=== PATIENT | female | born 1965 | race Caucasian/White ===

== ENCOUNTER 2018-10-07 10:53 | Outpatient (CLI) | payer BC | END 2018-10-07 10:54 | disposition home or self-care (01) | LOC: BICMAMMO 10:53 | PROVIDERS: ATTEND Family Medicine | DX: Z12.31 Encounter for screening mammogram for malignant neoplasm of breast (principal); Z80.3 Family history of malignant neoplasm of breast | CPT/HCPCS: 77063; 77067 ==

== ENCOUNTER 2019-09-09 09:49 | Outpatient (CLI) | payer BC ==
--- NOTE | 2019-09-09 13:30 | CT ---
CT ABDOMEN WITHOUT CONTRAST: INDICATIONS: Upper abdominal pain. TECHNIQUE: Oral contrast was administered. Multiplanar reconstructions. FINDINGS: The lung bases appear clear. Images of the liver reveal a small nonspecific low density focus along t he posterior margin of the upper liver, measuring 1.2 cm. This could represent a small cyst but canno t be adequate characterized. The liver, spleen and pancreas are otherwise unremarkable given the limi tations of an unenhanced exam. Stomach and duodenum appear unremarkable. There is a 2 cm nodule involving the left adrenal gland. Densities on this noncontrast study are chelita rded at 5 Hounsfield units, which would indicate a benign adenoma. The kidneys are unremarkable. No urinary tract calculus or hydronephrosis identified. The visualized aorta is of normal caliber. There is nonspecific periaortic adenopathy in the upper abdomen. Numerous para-aortic lymph nodes and paracaval lymph nodes are seen measuring 1 to 2 cm. There is a prominent lymph node along the medial collin of the left lobe of the liver in the upper abdomen measuring 2.7 cm craniocaudal on the coron al plane. The aorta shows atherosclerotic calcification but normal caliber. The kidneys show no evidence of hyd ronephrosis or mass, although exam is limited due to lack of IV contrast. The visualized small bowel loops are of normal caliber. Portions of the colon that are imaged appear unremarkable. There is abnormal mesenteric haziness and stranding along the anterior abdominal wall of the upper ab domen. This is nonspecific. It could represent changes from prior abdominal surgery. No evidence of free fluid. IMPRESSION: 1. Abdominal adenopathy seen in the upper abdomen and para-aortic regions, as described above. 2. Left adrenal nodule which has CT density, suggesting a benign adenoma. 3. Nonspecific mesenteric haziness and stranding along the anterior abdominal wall. This could repres ent inflammatory change however it may be chronic changes from prior abdominal surgery. POS: [facility]
== END 2019-09-09 09:50 | disposition home or self-care (01) ==
LOC: BICCT 09:49
PROVIDERS: ATTEND Family Medicine
DX: R10.84 Generalized abdominal pain (principal); R59.0 Localized enlarged lymph nodes; E27.8 Other specified disorders of adrenal gland
CPT/HCPCS: 74150

== ENCOUNTER 2019-10-22 08:20 | Outpatient (CLI) | payer BC ==
--- NOTE | 2019-10-22 09:42 | MMO ---
Bilateral MAMMO Bilat Screen [facility]. CLINICAL HISTORY: Patient is 54 years old and is seen for screening. The patient has no family history of breast cancer. The patient has a history of cervical cancer at age 28. VIEWS: The views performed were: bilateral craniocaudal with tomosynthesis and bilateral mediolateral oblique with tomosynthesis. FILMS COMPARED: The present examination has been compared to prior imaging studies performed at [facility] on 11/22/2008, 04/20/2013, 04/25/2014 and 10/07/2018. This study has been interpreted with the assistance of computer-aided detection. MAMMOGRAM FINDINGS: There are scattered fibroglandular densities. There are no suspicious masses, suspicious calcifications, or new areas of architectural distortion. IMPRESSION: THERE IS NO MAMMOGRAPHIC EVIDENCE OF MALIGNANCY. A ROUTINE FOLLOW-UP MAMMOGRAM IN 1 YEAR IS RECOMMENDED. THE RESULTS OF THIS EXAM WERE SENT TO THE PATIENT. ACR BI-RADS Category 1 - Negative MAMMOGRAPHY NOTE: 1. A negative mammogram report should not delay a biopsy if a dominant of clinically suspicious mass is present. 2. Approximately 10% to 15% of breast cancers are not detected by mammography. 3. Adenosis and dense breasts may obscure an underlying neoplasm. Reported by: BETO HANKINS MD Electonically Signed: [id number]
== END 2019-10-22 08:21 | disposition home or self-care (01) ==
LOC: BICMAMMO 08:20
PROVIDERS: ATTEND Family Medicine
DX: Z12.31 Encounter for screening mammogram for malignant neoplasm of breast (principal); Z85.41 Personal history of malignant neoplasm of cervix uteri
CPT/HCPCS: 77063; 77067

== ENCOUNTER 2019-10-25 15:51 | Emergency (ER) | payer BC ==
--- NOTE | 2019-10-25 17:28 | ULT ---
Right lower extremity venous Doppler ultrasound: 10/25/2019 COMPARISON: None HISTORY: Pain, assess for DVT TECHNIQUE: Multiplanar grayscale sonographic imaging of the venous structures of the right lower extr emity obtained with color flow and spectral analysis FINDINGS: Right common femoral vein, greater saphenous vein, profunda femoral vein, femoral vein, pop liteal vein, and posterior tibial vein are patent. Normal blood flow, augmentation, and compression within the deep venous system on the left. No evidence for deep venous thrombosis. IMPRESSION: No evidence for deep venous thrombosis of the right lower extremity.
[2019-10-25] MEDS ORDERED: Acetaminophen 325 MG TAB ONE (19:13)
== END 2019-10-25 19:24 | disposition home or self-care (01) ==
LOC: ERS 15:51
DX: M79.604 Pain in right leg (principal); E03.9 Hypothyroidism, unspecified; E11.9 Type 2 diabetes mellitus without complications; M19.90 Unspecified osteoarthritis, unspecified site; E78.5 Hyperlipidemia, unspecified; I10 Essential (primary) hypertension; F41.9 Anxiety disorder, unspecified; F17.210 Nicotine dependence, cigarettes, uncomplicated; Z79.84 Long term (current) use of oral hypoglycemic drugs; Z79.899 Other long term (current) drug therapy

== ENCOUNTER 2020-01-12 05:36 | Day surgery (SDC) | payer BC ==
[2020-01-11 13:09] VITALS: BMI 45.6
[2020-01-12] MEDS ORDERED: Bupivacaine PF 0.5% 30 ML VIAL ONE (06:44)
[2020-01-12] MEDS ORDERED: Lidocaine 1% w/Epinephrine 1:100K 20 ML VIAL ONE (06:44)
[2020-01-12] MEDS ORDERED: Propofol 500 MG/50 ML VIAL ONE (06:53)
[2020-01-12] MEDS ORDERED: Fentanyl 100 MCG/2 ML VIAL ONE (06:53)
[2020-01-12] MEDS ORDERED: Midazolam HCl 2 mg/2 ml Vial ONE (06:53)
[2020-01-12] MEDS ORDERED: Ketamine 50 MG/ML (10ML VIAL) ONE (06:53)
--- NOTE | 2020-01-12 07:41 | HP ---
HISTORY OF PRESENT ILLNESS: Henna Holguin is a 54-year-old female, followed by Dr. Awan and Dr. Sanford, has serous carcinoma, adnexa carcinomatosis, status post November 30 laparotomy, [place], Dr. Zhao, total abdominal hysterectomy, bilateral salpingo-oophorectomy, bowel resection, biopsies. With the above diagnosis, she has poor IV access and needs antineoplastic chemotherapy. Plan is to place a MediPort, IV sedation, local anesthesia. MEDICATIONS: 1. Atorvastatin. 2. Buspar. 3. Lisinopril. 4. Glimepiride. 5. Omeprazole. 6. Metformin ER. 7. Lovenox 150 mg subcu b.i.d. ALLERGIES: BAND-AIDS, PAPER TAPE. SOCIAL HISTORY: Tobacco none since November 2019, 1/2 to a pack per day prior. Alcohol rarely. PAST SURGICAL HISTORY: Laparotomy as described above, cholecystectomy in 2002, right oophorectomy, laparotomy for gynecological reasons, though she cannot recall. PAST MEDICAL HISTORY: Diabetes mellitus, GERD, carcinomatosis, serous adenocarcinoma of adnexa, postoperative laparotomy in November 2013. She experienced DVT, underwent thrombolysis prior to being discharged and is on Lovenox twice a day, therapeutic. She will hold this in the morning, resume it . REVIEW OF SYSTEMS: Noncontributory. PHYSICAL EXAMINATION: VITAL SIGNS: Weight 283 pounds, height 66 inches, 45 BMI, blood pressure 149/83, temperature degrees. HEAD, EARS, EYES, NOSE, AND THROAT: Unremarkable. LUNGS: Clear to auscultation. CARDIAC: Regular rhythm without murmur or gallop. ABDOMEN: Soft, obese, well-healed laparotomy incision. Both sites drained. EXTREMITIES: Unremarkable. ASSESSMENT: Serous carcinoma. PLAN: MediPort placement, outpatient IV sedation for chemotherapy tomorrow postoperatively. We will leave access. Job ID: [id number]
--- NOTE | 2020-01-12 08:00 | RAD ---
Exam: Chest one view HISTORY:Mediport placement Comparison: 03/17/2017 FINDINGS: Lines and tubes: Interval placement of right-sided Mediport catheter with the distal tip projecting o nick the superior vena cava. Cardiac silhouette: Normal Aorta: Unremarkable Pulmonary vessels: Normal Costophrenic angles: Clear LUNGS: Lung volumes are diminished, likely due to a poor inspiratory effort. Resultant accentuation i n the right infrahilar region Pneumothorax: None Osseous abnormalities: None IMPRESSION: 1. Right-sided Mediport catheter placement. Distal tip projects over the superior vena cava. No pneum othorax. 2. Diminished lung volumes with resultant accentuation in the right infrahilar region.
--- NOTE | 2020-01-12 11:50 | OP ---
DATE OF PROCEDURE: 01/12/2020 PREOPERATIVE DIAGNOSES: 1. Serous carcinoma with adnexal carcinomatosis. 2. Postoperative hysterectomy and debulking. 3. Need of antineoplastic chemotherapy access. 4. Obesity. POSTOPERATIVE DIAGNOSES: 1. Serous carcinoma with adnexal carcinomatosis. 2. Postoperative hysterectomy and debulking. 3. Need of antineoplastic chemotherapy access. 4. Obesity. PROCEDURE PERFORMED: Right subclavian vein MediPort, PowerPort. ANESTHESIA: TIVA, local with 0.5% Marcaine 30 mL mixed with 1% Xylocaine with epinephrine 20 mL, fluoroscopy used. DESCRIPTION OF PROCEDURE: The patient was taken to the operating room where under intravenous sedation, neck and chest prepared with ChloraPrep and draped in routine fashion. Local anesthetic mixture was infiltrated into the skin and subcutaneous tissue about the operative site. Infraclavicular approach to the subclavian vein used and J-wire threaded, trocar and catheter removed. Skin site enlarged sharply, carried down to skin and subcutaneous tissue, subcutaneous pocket created with blunt and sharp dissection. Good hemostasis noted. Dilator and Peel-Away sheath placed over the J-wire in the superior vena cava and dilator and J-wire were removed. Catheter placed with Peel-Away sheath. Peel-Away sheath removed. Tip of the catheter placed in optimal position, deep in the superior vena cava, considering her obesity. Catheter tailored to length, connected to the MediPort place, which was placed in the pocket and secured with 2 interrupted suture of 3-0 Prolene. Subcutaneous tissue was approximated with 3-0 Monocryl, skin with subdermal 4-0 Monocryl, and Hutchison glue applied. MediPort accessed with a Garcia needle, aspirating blood, flushing with heparinized saline solution, leaving the MediPort access for chemotherapy administration today. Job ID: [id number]
== END 2020-01-12 08:35 | disposition home or self-care (01) ==
LOC: SDC 05:36
PROVIDERS: ATTEND Specialist
PROC: 02HV33Z Insertion of Infusion Device into Superior Vena Cava, Percutaneous Approach (ICD-10-PCS; principal; 2020-01-12)
DX: C76.3 Malignant neoplasm of pelvis (principal); E11.9 Type 2 diabetes mellitus without complications; K21.9 Gastro-esophageal reflux disease without esophagitis; E78.00 Pure hypercholesterolemia, unspecified; E66.9 Obesity, unspecified; Z68.42 Body mass index [BMI] 45.0-49.9, adult; Z79.82 Long term (current) use of aspirin; Z79.84 Long term (current) use of oral hypoglycemic drugs; Z79.899 Other long term (current) drug therapy; Z87.891 Personal history of nicotine dependence; Z91.048 Other nonmedicinal substance allergy status
CPT/HCPCS: 71045; 80053; 82248; 83615; 84100; 84550; 86304; C1788; J0690; J1642; J2250; J2704; J3010; S0020

== ENCOUNTER 2020-01-13 09:58 | Day surgery (SDC) | payer BC ==
[2020-01-13] MEDS ORDERED: diphenhydrAMINE 25 MG CAP PO SCH (10:45)
[2020-01-13] MEDS ORDERED: Acetaminophen 500 MG TAB PO SCH (10:45)
[2020-01-13 16:45] VITALS: BP 160/71; TEMP 98.5
[2020-01-13 17:01] LABS: #Lymphocytes 1.2 thou/uL (1.20-3.40); #Monocytes 0.1 thou/uL (0.11-0.59); #Neutrophils 6.4 thou/uL (1.40-6.50); %Basophils 0.2 % (0.0-1.0); %Eosinophils 0.2 % (0.0-10.0); %Lymphocytes 15.6 % (21.0-51.0); %Monocytes 1.7 % (0.0-10.0); %Neutrophils 82.3 % (42.0-75.0); Hemoglobin 9.3 g/dL (12.0-16.0); Mean Corpuscular HGB CONC 32.8 g/dL (32.0-36.0); Mean Corpuscular Hemoglobin 29.1 pg (27.0-31.0); Mean Corpuscular Volume 88.6 fL (78.0-98.0); Mean Platelet Volume 7.1 fL (7.4-10.4); Platelet Count 409 thou/uL (130-400); White Blood Cell (WBC) Count 7.8 thou/uL (4.8-10.8)
== END 2020-01-13 16:46 | disposition home or self-care (01) ==
LOC: ONC/OP 09:58
PROVIDERS: ATTEND Internal Medicine Hematology & Oncology
PROC: 30233N1 Transfusion of Nonautologous Red Blood Cells into Peripheral Vein, Percutaneous Approach (ICD-10-PCS; principal; 2020-01-13)
DX: D64.9 Anemia, unspecified (principal); D69.6 Thrombocytopenia, unspecified; Z91.048 Other nonmedicinal substance allergy status
CPT/HCPCS: 36430; 85025; 86850; 86900; 86901; P9016; Q0163

== ENCOUNTER 2020-03-15 07:16 | Day surgery (SDC) | payer BC ==
[2020-03-15] MEDS ORDERED: Sodium Chloride 0.9% 20 ML ONE (08:03)
[2020-03-15] MEDS ORDERED: diphenhydrAMINE 25 MG CAP PO SCH (08:15)
[2020-03-15] MEDS ORDERED: Acetaminophen 500 MG TAB PO SCH (08:15)
[2020-03-15] MEDS ORDERED: Furosemide 20 MG/2 ML VIAL SLOW IVP SCH (08:15)
[2020-03-15 15:23] VITALS: BP 138/61; TEMP 98
== END 2020-03-15 15:24 | disposition home or self-care (01) ==
LOC: ONC/OP 07:16
PROVIDERS: ATTEND Internal Medicine Hematology & Oncology
PROC: 30233N1 Transfusion of Nonautologous Red Blood Cells into Peripheral Vein, Percutaneous Approach (ICD-10-PCS; principal; 2020-03-15)
DX: D64.9 Anemia, unspecified (principal); D69.59 Other secondary thrombocytopenia; Z91.048 Other nonmedicinal substance allergy status
CPT/HCPCS: 36430; 86850; 86900; 86901; 96374; J1642; J1940; P9016; Q0163

== ENCOUNTER 2020-05-08 08:18 | Outpatient (CLI) | payer BC ==
--- NOTE | 2020-05-08 11:36 | CT ---
CT CHEST AND ABDOMEN AND PELVIS WITH IV CONTRAST: Oral contrast was administered. Multiplanar reconstruction. INDICATION: Malignant neoplasm left ovary. Diagnosed ovarian cancer in October. Hysterectomy and oophorectomy in November. Finished chemotherapy. Surgical history includes cholecystectomy and appendectomy. COMPARISON: Comparison is made to CT abdomen dated 09/09/2019. There are no prior CT pelvis exams available. FINDINGS: CT CHEST: The lungs show no evidence of infiltrate or effusion. There is an ill-defined nodular density in the peripheral right upper lobe measuring 6-7 mm on axial image. The lung hart are otherwise clear. No other mass or nodule. The mediastinum is unremarkable with no evidence of adenopathy. There are small subcentimeter medias tinal lymph nodes noted. No evidence of axillary adenopathy. Thoracic aorta shows atherosclerotic change. Proximal pulmonary arteries show no evidence of proximal embolus or filling defect. Osseous structures unremarkable. IMPRESSION: An ill-defined 6 mm nodule in the peripheral right upper lobe which is nonspecific. Recommend follow up noncontrast CT chest in 6 months to assess stability. CT ABDOMEN AND PELVIS: There is a 1 cm cyst posterior right lobe of liver which is stable from 09/09/2019. The liver, splee n, and pancreas otherwise appear unremarkable. Post cholecystectomy change is noted. Stomach and du odenum unremarkable. The nodular mass involving the left adrenal gland is again seen and is unchanged in size continuing t o measure approximately 2 cm. The precontrast densities on 09/09/2019 were consistent with a benign adenoma and were measured at 5-6 Hounsfield units. The kidneys are unremarkable. Small bowel loops appear normal caliber. Colon unremarkable. The aorta shows atherosclerotic change . The distal abdominal aorta is ectatic measuring up to 2.5 cm diameter. There continues to be a nonspecific portocaval lymph node measuring approximately 1.[address] dimension, stable from prior exam. There has been resolution of abdominal adenopathy when compare d to 09/09/2019. An enlarged node seen previously anterior to the vena cava in the upper abdomen and just posterior to the superior mesenteric artery have significantly resolved in size measuring appro ximately 0.5 x 1.0 cm today. It previously measured approximately 2 cm. The prior exam also demonst rated paraaortic adenopathy in the mid abdomen which has resolved since that study. The kidneys are unremarkable. Images through the pelvis show evidence of hysterectomy. The urinary bladder is contracted. There a re 2 small rectangular-shaped opacities which are adjacent one another in the pelvis in the region of the cul-de-sac abutting anterior rectum. These may be postsurgical devices but cannot be further ch aracterized. Thee is no adenopathy or free fluid in the pelvis. The mesenteric haziness and omental thickening seen along the anterior abdominal wall on the prior ex am of 09/09/2019 is no longer present. The osseous structures are unremarkable. There are degenerative changes in the lumbar spine which ar e most pronounced at the L2-3 level with loss of disk space, degenerative disk, and end plate changes . IMPRESSION: 1. Resolution of the abdominal and periaortic adenopathy when compared to the exam of 09/09/2019. 2. Resolution of the mesenteric omental caking/density when compared to 09/09/2019. 3. Small hepatic cyst is stable. 4. Left adrenal nodule is stable. POS: [facility]
[2020-05-08] MEDS ORDERED: Iopamidol 370 76% 100 ML VIAL ONE (13:41)
== END 2020-05-08 08:19 | disposition home or self-care (01) ==
LOC: CT 08:18
PROVIDERS: ATTEND Internal Medicine Hematology & Oncology
DX: C56.2 Malignant neoplasm of left ovary (principal); E27.8 Other specified disorders of adrenal gland; K76.89 Other specified diseases of liver; R91.1 Solitary pulmonary nodule
CPT/HCPCS: 71260; 74177; Q9967

== ENCOUNTER 2020-11-03 09:26 | Emergency (ER) | payer BC ==
[2020-11-03 10:08] LABS: #Eosinphils 0.1 thou/uL (0.0-0.7); #Lymphocytes 1.3 thou/uL (1.20-3.40); #Monocytes 0.3 thou/uL (0.11-0.59); #Neutrophils 4.4 thou/uL (1.40-6.50); %Basophils 0.6 % (0.0-1.0); %Eosinophils 1.6 % (0.0-10.0); %Lymphocytes 20.9 % (21.0-51.0); %Monocytes 5.6 % (0.0-10.0); %Neutrophils 71.3 % (42.0-75.0); Hemoglobin 5.6 g/dL (12.0-16.0); Mean Corpuscular HGB CONC 35.2 g/dL (32.0-36.0); Mean Corpuscular Hemoglobin 38.4 pg (27.0-31.0); Platelet Count 215 thou/uL (130-400); RBC Distribution Width 15.9 % (11.5-14.5); Red Blood Cell (RBC) Count 1.45 mill/uL (4.20-5.40); White Blood Cell (WBC) Count 6.2 thou/uL (4.8-10.8)
[2020-11-03 10:19] LABS: ALT (SGPT) 16 U/L (8-55); AST (SGOT) 12 U/L (5-34); Albumin 4.2 g/dL (3.5-5.0); Alkaline Phosphatase 146 U/L (40-110); Anion Gap 19 mmol/L (10-20); BUN (Urea Nitrogen) 20 mg/dL (9.8-20.1); Bilirubin, Total 0.6 mg/dL (0.2-1.2); Calc. Creatinine Clearance 0 mL/min (70-130); Carbon Dioxide 20 mmol/L (22-29); Chloride 103 mmol/L (98-107); Globulin 3.1 g/dL (2.4-3.5); Glucose 173 mg/dL (70-105); Potassium 4.2 mmol/L (3.5-5.1); Protein, Total 7.3 g/dL (6.0-8.3); Sodium 138 mmol/L (136-145)
[2020-11-03 10:52] LABS: MDiff Complete? YES; Macrocytosis SLIGHT = 6-15 cells (100X) (0-5/hpf); Platelet Morphology Comment Appears Adequate; Polychromasia SLIGHT = 2-3 cells (100X) (0-2/hpf); Tear Drops SLIGHT = 2-5 cells (100X) (0-1/hpf)
== END 2020-11-03 15:45 | disposition home or self-care (01) ==
LOC: ERS 09:26
DX: C56.9 Malignant neoplasm of unspecified ovary (principal); D63.0 Anemia in neoplastic disease; E03.9 Hypothyroidism, unspecified; E11.9 Type 2 diabetes mellitus without complications; E78.5 Hyperlipidemia, unspecified; I10 Essential (primary) hypertension; Z87.891 Personal history of nicotine dependence; Z79.899 Other long term (current) drug therapy
CPT/HCPCS: 36415; 36430; 80053; 85025; 86850; 86900; 86901; 94760; P9016

== ENCOUNTER 2021-01-17 08:28 | Outpatient (CLI) | payer BC ==
[2021-01-17 21:52] LABS: SARS-CoV-2 PCR by NAA Not Detected (NotDetected)
== END 2021-01-17 08:29 | disposition home or self-care (01) ==
LOC: LABBT 08:28
PROVIDERS: ATTEND Internal Medicine Gastroenterology
DX: Z01.812 Encounter for preprocedural laboratory examination (principal); Z20.822 Contact with and (suspected) exposure to COVID-19
CPT/HCPCS: 87635; U0003; U0005

== ENCOUNTER 2021-01-22 06:41 | Day surgery (SDC) | payer BC ==
[2021-01-22] MEDS ORDERED: Fentanyl 100 MCG/2 ML VIAL ONE (08:47)
[2021-01-22] MEDS ORDERED: PROPOFOL 200 MG/20 ML VIAL ONE (10:10)
== END 2021-01-22 10:45 | disposition home or self-care (01) ==
LOC: SDC 06:41
PROVIDERS: ATTEND Internal Medicine Gastroenterology
PROC: 0DJ08ZZ Inspection of Upper Intestinal Tract, Via Natural or Artificial Opening Endoscopic (ICD-10-PCS; principal; 2021-01-22)
PROC: 0DBL8ZZ Excision of Transverse Colon, Via Natural or Artificial Opening Endoscopic (ICD-10-PCS; principal; 2021-01-22)
PROC: 0DBH8ZZ Excision of Cecum, Via Natural or Artificial Opening Endoscopic (ICD-10-PCS; principal; 2021-01-22)
PROC: 0DBM8ZZ Excision of Descending Colon, Via Natural or Artificial Opening Endoscopic (ICD-10-PCS; principal; 2021-01-22)
DX: D12.0 Benign neoplasm of cecum (principal); D12.3 Benign neoplasm of transverse colon; D12.4 Benign neoplasm of descending colon; K64.8 Other hemorrhoids; K92.2 Gastrointestinal hemorrhage, unspecified; D64.9 Anemia, unspecified; C56.9 Malignant neoplasm of unspecified ovary; I10 Essential (primary) hypertension; E78.5 Hyperlipidemia, unspecified; E66.9 Obesity, unspecified; Z68.43 Body mass index [BMI] 50.0-59.9, adult; Z79.84 Long term (current) use of oral hypoglycemic drugs; Z79.899 Other long term (current) drug therapy; Z91.048 Other nonmedicinal substance allergy status
CPT/HCPCS: 88305; J2704; J3010

== ENCOUNTER 2021-08-31 07:30 | Outpatient (CLI) | payer BC ==
[2021-08-31] MEDS ORDERED: Iopamidol 370 76% 100 ML VIAL ONE (09:35)
== END 2021-08-31 07:31 | disposition home or self-care (01) ==
LOC: BICCT 07:30
PROVIDERS: ATTEND Internal Medicine Hematology & Oncology
DX: C56.2 Malignant neoplasm of left ovary (principal); R91.1 Solitary pulmonary nodule; K76.0 Fatty (change of) liver, not elsewhere classified; E27.8 Other specified disorders of adrenal gland
CPT/HCPCS: 71260; 74177; Q9967

== ENCOUNTER 2021-12-19 07:44 | Outpatient (CLI) | payer BC | END 2021-12-19 07:45 | disposition home or self-care (01) | LOC: CT 07:44 | PROVIDERS: ATTEND Internal Medicine Hematology & Oncology | DX: C56.2 Malignant neoplasm of left ovary (principal); R91.1 Solitary pulmonary nodule; E27.8 Other specified disorders of adrenal gland; K76.0 Fatty (change of) liver, not elsewhere classified; Z90.49 Acquired absence of other specified parts of digestive tract; Z90.710 Acquired absence of both cervix and uterus | CPT/HCPCS: 71260; 74177; 82565 ==

== ENCOUNTER 2022-04-08 06:54 | Outpatient (CLI) | payer BC ==
[2022-04-08] MEDS ORDERED: ISOVUE-370 76% 1 ML ONE (14:50)
== END 2022-04-08 06:55 | disposition home or self-care (01) ==
LOC: BICCT 06:54
PROVIDERS: ATTEND Internal Medicine Hematology & Oncology
DX: C56.2 Malignant neoplasm of left ovary (principal); J98.4 Other disorders of lung; E27.8 Other specified disorders of adrenal gland
CPT/HCPCS: 71260; 74177; 82565

== ENCOUNTER 2022-04-12 10:00 | Outpatient (CLI) | payer BC | END 2022-04-12 10:01 | disposition home or self-care (01) | LOC: PET 10:00 | PROVIDERS: ATTEND Internal Medicine Hematology & Oncology | DX: C56.2 Malignant neoplasm of left ovary (principal) | CPT/HCPCS: 78815; A9552 ==

== ENCOUNTER 2022-06-17 10:02 | Emergency (ER) | payer BC ==
[~2022-06-17 10:02] MED LIST: Iopamidol-370 76% 500 ML 1 ML ONE
[2022-06-17 11:34] LABS: Hemoglobin 10.3 g/dL (12.0-16.0); Mean Corpuscular HGB CONC 34.2 g/dL (32.0-36.0); Mean Corpuscular Hemoglobin 34.8 pg (27.0-31.0); Mean Platelet Volume 10.7 fL (7.4-10.4); Platelet Count 54 thou/uL (130-400); RBC Distribution Width 14.5 % (11.5-14.5); Red Blood Cell (RBC) Count 2.95 mill/uL (4.20-5.40); White Blood Cell (WBC) Count 2.2 thou/uL (4.8-10.8)
[2022-06-17 11:55] LABS: Eosinophils 7 % (0-10); Lymphocytes 70 % (21-51); MDiff Complete? YES; Macrocytosis SLIGHT = 6-15 cells (100X) (0-5/hpf); Monocytes 16 % (0-10); Neutrophil 5 % (42-75); Ovalocytes SLIGHT = 2-5 cells (100X) (0-1/hpf); Platelet Morphology Comment Appears Decreased; Polychromasia SLIGHT = 2-3 cells (100X) (0-2/hpf); Reactive Lymphocytes 2 % (0-10); Tear Drops SLIGHT = 2-5 cells (100X) (0-1/hpf)
[2022-06-17 11:56] LABS: ALT (SGPT) 69 U/L (8-55); AST (SGOT) 51 U/L (5-34); Albumin 4.1 g/dL (3.5-5.0); Alkaline Phosphatase 141 U/L (40-110); Anion Gap 19 mmol/L (10-20); BUN (Urea Nitrogen) 26 mg/dL (9.8-20.1); Bilirubin, Total 1.2 mg/dL (0.2-1.2); Calc. Creatinine Clearance 0 mL/min (70-130); Calcium 9.6 mg/dL (7.8-10.44); Carbon Dioxide 21 mmol/L (22-29); Chloride 103 mmol/L (98-107); Estimated GFR 50; Globulin 3.2 g/dL (2.4-3.5); Glucose 187 mg/dL (70-105); Potassium 5.1 mmol/L (3.5-5.1); Protein, Total 7.3 g/dL (6.0-8.3); Sodium 138 mmol/L (136-145)
[2022-06-17 12:19] LABS: CK (CPK) 57 U/L (29-168); Lipase 18 U/L (8-78)
== END 2022-06-17 14:02 | disposition home or self-care (01) ==
LOC: ERS 10:02
DX: R06.00 Dyspnea, unspecified (principal); T45.1X5A Adverse effect of antineoplastic and immunosuppressive drugs, initial encounter; D69.6 Thrombocytopenia, unspecified; C56.9 Malignant neoplasm of unspecified ovary; E03.9 Hypothyroidism, unspecified; E11.9 Type 2 diabetes mellitus without complications; E78.5 Hyperlipidemia, unspecified; Z87.891 Personal history of nicotine dependence; Z79.84 Long term (current) use of oral hypoglycemic drugs; Z79.899 Other long term (current) drug therapy
CPT/HCPCS: 36415; 71275; 80053; 82550; 83690; 83880; 84484; 85025; 93005; 96360; 96361; Q9967

== ENCOUNTER 2022-06-21 11:00 | Outpatient (CLI) | payer BC | END 2022-06-21 11:01 | disposition home or self-care (01) | LOC: PET 11:00 | PROVIDERS: ATTEND Internal Medicine Hematology & Oncology | DX: C56.2 Malignant neoplasm of left ovary (principal) | CPT/HCPCS: 78815; A9552 ==

== ENCOUNTER 2022-08-12 11:03 | Day surgery (SDC) | payer BC, OTHER ==
[2022-08-12] MEDS ORDERED: Activase 2 MG VIAL CATH SCH (12:45)
[2022-08-12] MEDS ORDERED: Sterile Water 10 ML VIAL IVP SCH (13:15)
[2022-08-12] MEDS ORDERED: diphenhydrAMINE 25 MG CAP ONE (13:56)
[2022-08-12] MEDS ORDERED: Acetaminophen 500 MG TAB ONE (13:56)
[2022-08-12 19:14] VITALS: BP 168/77; TEMP 98.1
== END 2022-08-12 19:20 | disposition home or self-care (01) ==
LOC: ONC/OP 11:03
PROVIDERS: ATTEND Internal Medicine Hematology & Oncology
PROC: 30233N1 Transfusion of Nonautologous Red Blood Cells into Peripheral Vein, Percutaneous Approach (ICD-10-PCS; principal; 2022-08-12)
DX: D64.9 Anemia, unspecified (principal); D69.6 Thrombocytopenia, unspecified; Z91.048 Other nonmedicinal substance allergy status
CPT/HCPCS: 36430; 86850; 86900; 86901; 96372; J1642; J2997; P9016

== ENCOUNTER 2022-08-22 04:02 | Emergency (ER) | payer BC, OTHER ==
[2022-08-22] MEDS ORDERED: diphenhydrAMINE 25 MG CAP ONE (04:30)
[2022-08-22] MEDS ORDERED: Famotidine/PF 20 mg/2ml Vial ONE (04:30)
[2022-08-22] MEDS ORDERED: predniSONE 20 MG TAB ONE (04:30)
[2022-08-22] MEDS ORDERED: Famotidine 20 MG TAB ONE (04:30)
== END 2022-08-22 05:20 | disposition home or self-care (01) ==
LOC: ERS 04:02
DX: L50.9 Urticaria, unspecified (principal); I10 Essential (primary) hypertension; E11.9 Type 2 diabetes mellitus without complications; E78.5 Hyperlipidemia, unspecified; Z79.84 Long term (current) use of oral hypoglycemic drugs; Z79.899 Other long term (current) drug therapy
CPT/HCPCS: 99282; J7512; S0028

== ENCOUNTER 2022-12-20 10:15 | Outpatient (CLI) | payer BC | END 2022-12-20 10:16 | disposition home or self-care (01) | LOC: PET 10:15 | PROVIDERS: ATTEND Internal Medicine Hematology & Oncology | DX: C56.2 Malignant neoplasm of left ovary (principal); D73.89 Other diseases of spleen | CPT/HCPCS: 78815; A9552 ==

== ENCOUNTER 2022-12-25 05:50 | Emergency (ER) | payer BC ==
[2022-12-25] MEDS ORDERED: Famotidine 20 MG TAB ONE (06:36)
[2022-12-25] MEDS ORDERED: diphenhydrAMINE 25 MG CAP ONE (06:36)
[2022-12-25] MEDS ORDERED: predniSONE 20 MG TAB ONE (06:36)
[2022-12-25] MEDS ORDERED: EPINEPHrine 1 MG/ML VIAL ONE (08:15)
[2022-12-25 09:15] LABS: ALT (SGPT) 41 U/L (8-55); AST (SGOT) 40 U/L (5-34); Albumin 3.6 g/dL (3.5-5.0); Alkaline Phosphatase 99 U/L (40-110); Anion Gap 14 mmol/L (10-20); BUN (Urea Nitrogen) 26 mg/dL (9.8-20.1); Bilirubin, Total 0.7 mg/dL (0.2-1.2); Calc. Creatinine Clearance 0 mL/min (70-130); Calcium 8.7 mg/dL (7.8-10.44); Carbon Dioxide 20 mmol/L (22-29); Chloride 105 mmol/L (98-107); Estimated GFR 55; Globulin 2.8 g/dL (2.4-3.5); Glucose 147 mg/dL (70-105); Potassium 4.2 mmol/L (3.5-5.1); Protein, Total 6.4 g/dL (6.0-8.3); Sodium 135 mmol/L (136-145)
[2022-12-25 09:16] LABS: INR-International Normal Ratio 1.1; Prothrombin Time 14.8 sec (12.0-14.7)
[2022-12-25 09:17] LABS: PTT 36.9 sec (22.9-36.1)
[2022-12-25 09:30] LABS: #Eosinphils 0.3 thou/uL (0.0-0.7); #Lymphocytes 1.2 thou/uL (1.20-3.40); #Monocytes 0.3 thou/uL (0.11-0.59); #Neutrophils 2.1 thou/uL (1.40-6.50); %Eosinophils 6.9 % (0.0-10.0); %Lymphocytes 30.9 % (21.0-51.0); %Monocytes 7.5 % (0.0-10.0); %Neutrophils 54.8 % (42.0-75.0); Hemoglobin 11.2 g/dL (12.0-16.0); Mean Corpuscular HGB CONC 32.7 g/dL (32.0-36.0); Mean Corpuscular Hemoglobin 33.7 pg (27.0-31.0); Mean Platelet Volume 7.7 fL (7.4-10.4); Platelet Count 118 10x3/uL (130-400); RBC Distribution Width 15.5 % (11.5-14.5); Red Blood Cell (RBC) Count 3.33 mill/uL (4.20-5.40); White Blood Cell (WBC) Count 3.8 10x3/uL (4.8-10.8)
== END 2022-12-25 10:48 | disposition home or self-care (01) ==
LOC: ERS 05:50
DX: D72.12 Drug rash with eosinophilia and systemic symptoms syndrome (principal); T36.8X5A Adverse effect of other systemic antibiotics, initial encounter; E11.9 Type 2 diabetes mellitus without complications; E78.5 Hyperlipidemia, unspecified; I10 Essential (primary) hypertension; E03.9 Hypothyroidism, unspecified; Z87.891 Personal history of nicotine dependence
CPT/HCPCS: 36415; 80053; 85025; 85610; 85652; 85730; 96372; 99283; J0171; J7512

== ENCOUNTER 2023-03-13 11:17 | Outpatient (CLI) | payer BC | END 2023-03-13 11:18 | disposition home or self-care (01) | LOC: ULT 11:17 | PROVIDERS: ATTEND Internal Medicine Hematology & Oncology | DX: Z51.11 Encounter for antineoplastic chemotherapy (principal); C56.2 Malignant neoplasm of left ovary; I08.3 Combined rheumatic disorders of mitral, aortic and tricuspid valves; Z79.899 Other long term (current) drug therapy | CPT/HCPCS: 93306 ==

== ENCOUNTER 2023-10-30 07:52 | Outpatient (CLI) | payer BC | END 2023-10-30 07:53 | disposition home or self-care (01) | LOC: BICCT 07:52 | PROVIDERS: ATTEND Internal Medicine Hematology & Oncology | DX: C56.2 Malignant neoplasm of left ovary (principal); R91.1 Solitary pulmonary nodule; Z90.81 Acquired absence of spleen | CPT/HCPCS: 71260; 74177 ==

== ENCOUNTER 2023-11-03 12:15 | Outpatient (CLI) | payer BC | END 2023-11-03 12:16 | disposition home or self-care (01) | LOC: ULT 12:15 | PROVIDERS: ATTEND Internal Medicine Hematology & Oncology | DX: Z51.11 Encounter for antineoplastic chemotherapy (principal); C56.2 Malignant neoplasm of left ovary; I08.1 Rheumatic disorders of both mitral and tricuspid valves; Z79.899 Other long term (current) drug therapy | CPT/HCPCS: 93306 ==

== ENCOUNTER 2024-01-30 08:20 | Outpatient (CLI) | payer BC | END 2024-01-30 08:21 | disposition home or self-care (01) | LOC: CT 08:20 | PROVIDERS: ATTEND Internal Medicine Hematology & Oncology | DX: C56.2 Malignant neoplasm of left ovary (principal); R91.8 Other nonspecific abnormal finding of lung field; E27.8 Other specified disorders of adrenal gland; R91.1 Solitary pulmonary nodule; K76.89 Other specified diseases of liver; K43.9 Ventral hernia without obstruction or gangrene; M81.0 Age-related osteoporosis without current pathological fracture; M47.819 Spondylosis without myelopathy or radiculopathy, site unspecified; M16.0 Bilateral primary osteoarthritis of hip | CPT/HCPCS: 71260; 74177; 82565 ==

== ENCOUNTER 2024-04-08 13:01 | Outpatient (CLI) | payer BC | END 2024-04-08 13:02 | disposition home or self-care (01) | LOC: PET 13:01 | PROVIDERS: ATTEND Internal Medicine Hematology & Oncology | DX: Z51.11 Encounter for antineoplastic chemotherapy (principal); C56.2 Malignant neoplasm of left ovary; R97.1 Elevated cancer antigen 125 [CA 125]; I08.8 Other rheumatic multiple valve diseases; Z79.899 Other long term (current) drug therapy; Z90.49 Acquired absence of other specified parts of digestive tract | CPT/HCPCS: 78815; 93306; A9552 ==

== ENCOUNTER 2024-09-09 08:00 | Outpatient (CLI) | payer BC | END 2024-09-09 08:01 | disposition home or self-care (01) | LOC: PET 08:00 | PROVIDERS: ATTEND Internal Medicine Hematology & Oncology | DX: C56.2 Malignant neoplasm of left ovary (principal); C78.6 Secondary malignant neoplasm of retroperitoneum and peritoneum | CPT/HCPCS: 78815; A9552 ==

== ENCOUNTER 2024-10-19 17:01 | Day surgery (SDC) | payer OTHER ==
[2024-10-19] MEDS ORDERED: Acetaminophen 500 MG TAB PO SCH (17:45)
[2024-10-19] MEDS ORDERED: diphenhydrAMINE 25 MG CAP PO SCH (17:45)
[2024-10-19] MEDS: diphenhydrAMINE 25 MG CAP ONE (18:04)
[2024-10-19] MEDS: Acetaminophen 500 MG TAB ONE (18:04)
[2024-10-19 19:09] VITALS: BMI 43.2
[2024-10-19 20:05] VITALS: BP 132/86; TEMP 98
[2024-10-19 20:11] LABS: Hematocrit 28.3 % (36.0-47.0); Hemoglobin 9.5 g/dL (12.0-16.0); Mean Corpuscular HGB CONC 33.6 g/dL (32.0-36.0); Mean Corpuscular Volume 98.3 fL (78.0-98.0); Mean Platelet Volume 9.9 fL (7.4-10.4); Platelet Count 47 10x3/uL (130-400); RBC Distribution Width 13.3 % (11.5-14.5); Red Blood Cell (RBC) Count 2.88 mill/uL (4.20-5.40)
[2024-10-19 20:40] LABS: Anisocytosis SLIGHT = 6-15 cells HPF (0-5); Band 1 % (5-11); Burr Cells SLIGHT = 2-5 cells HPF (0-1); Eosinophils 3 % (0-10); Lymphocytes 83 % (21-51); Monocytes 1 % (0-10); Neutrophil 9 % (42-75); Platelet Adequacy Comment Platelets Decreased; Polychromasia SLIGHT = 2-3 cells HPF (0-2); Reactive Lymphocytes 2 % (0-10); Smudge Cells 14.1 %
== END 2024-10-19 21:10 | disposition home or self-care (01) ==
LOC: UNDOADMIN 17:01 → MSONC 17:01 → SDC/OP 17:01 → UNDODISIN 21:10 → EDSTATUS 10-21 16:57
PROVIDERS: ATTEND Internal Medicine Hematology & Oncology
DX: D64.9 Anemia, unspecified (principal); D69.6 Thrombocytopenia, unspecified
CPT/HCPCS: 36415; 36430; 85025; 86850; 86900; 86901; J1642; P9035

== ENCOUNTER 2024-12-01 11:17 | Day surgery (SDC) | payer OTHER ==
[2024-12-01] MEDS ORDERED: Acetaminophen 500 MG TAB ONE (12:00)
[2024-12-01] MEDS ORDERED: diphenhydrAMINE 25 MG CAP ONE (12:00)
[2024-12-01] MEDS: diphenhydrAMINE 25 MG CAP PO SCH (12:01)
[2024-12-01] MEDS: Acetaminophen 500 MG TAB PO SCH (12:01)
[2024-12-01 13:48] VITALS: TEMP 98
[2024-12-01 13:49] VITALS: BP 142/66
== END 2024-12-01 13:51 | disposition home or self-care (01) ==
LOC: ONC/OP 11:17
PROVIDERS: ATTEND Internal Medicine Hematology & Oncology
DX: D64.9 Anemia, unspecified (principal); D69.6 Thrombocytopenia, unspecified; Z91.048 Other nonmedicinal substance allergy status; Z88.2 Allergy status to sulfonamides; Z91.040 Latex allergy status
CPT/HCPCS: 36430; 86850; 86900; 86901; J1642; P9035